=== PATIENT | female | born 1950 ===

== ENCOUNTER → 2020-07-25 | Outpatient (CLI) | payer MEDICARE, OTHER ==
[2020-07-25 11:02] LABS: HCT 43.4 % (34.0-46.0); HGB 13.4 gm/dL (11.4-16.0); MCH 32.2 pg (25.0-35.0); Macrocytosis Slight; Platelet Count 285 k/uL (150-450); RBC 4.18 m/uL (3.80-5.40); RDW 12.8 % (11.5-15.5)
[2020-07-25 11:06] LABS: ALT 21 U/L (4-34); AST 32 U/L (14-36); African American GFR (CKD) >90 (>60 ml/min/1.73 sqM); Albumin 4.4 g/dL (3.5-5.0); Alkaline Phosphatase 62 U/L (38-126); Anion Gap 6 mmol/L; Blood Urea Nitrogen 22 mg/dL (7-17); Carbon Dioxide 30 mmol/L (22-30); Chloride 102 mmol/L (98-107); Glucose 94 mg/dL (74-99); Non-African American GFR(CKD) 78 (>60 ml/min/1.73 sqM); Potassium 4.4 mmol/L (3.5-5.1); Sodium 138 mmol/L (137-145); Total Bilirubin 0.5 mg/dL (0.2-1.3)
[2020-07-25 12:44] LABS: INR 0.9 (<1.2); Partial Thromboplastin Time 23.6 sec (22.0-30.0); Prothrombin Time 9.7 sec (9.0-12.0)
[2020-07-25 13:28] LABS: Appearance,Urine Clear (Clear); Bilirubin,Urine Negative (Negative); Blood,Urine Negative (Negative); Color,Urine Yellow; Glucose,Urine (UA) Negative (Negative); Ketones,Urine Negative (Negative); Leukocyte Esterase,Urine Negative (Negative); Nitrite,Urine Negative (Negative); Protein,Urine Negative (Negative); Specific Gravity,Urine 1.019 (1.001-1.035); Urobilinogen,Urine <2.0 mg/dL (<2.0)
== END | disposition home or self-care (01) ==
LOC: LABPAT 09:05
PROVIDERS: ATTEND Orthopaedic Surgery
DX: Z01.818 Encounter for other preprocedural examination (principal); M16.11 Unilateral primary osteoarthritis, right hip; Z01.812 Encounter for preprocedural laboratory examination
CPT/HCPCS: 36415; 80053; 81003; 85027; 85610; 85730; 87070; 93005

== ENCOUNTER 2020-08-01 07:47 | Day surgery (SDC) | payer MEDICARE, OTHER ==
[2020-07-28 12:39] VITALS: BMI 23.8
[~2020-08-01 07:47] MED LIST: ACETAMINOPHEN TAB 500 MG TAB PO ONE; DEXAMETHASONE SOD PHOSPHATE 4 MG/ML 1 ML VIAL IV ONE; GABAPENTIN 300 MG CAP PO ONE; HYDROmorphone 0.5 MG/0.5 ML SYRINGE IVP PRN; LIDOCAINE 1% (10MG/ML) FOR IV START INTRADERMA PRN; MELOXICAM 7.5 MG TAB PO ONE; MIDAZOLAM 2 MG/2 ML VIAL IV PRN; ONDANSETRON 4 MG/2 ML VIAL IVP ONE; TRANEXAMIC ACID 1,000 MG in SODIUM CHLORIDE 0.9% 100 ML IVPB ONE
[2020-08-01] MEDS: LACTATED RINGERS 1,000 ML IV SCH (08:42)
[2020-08-01] MEDS ORDERED: PROPOFOL 10 MG/ML 20 ML VIAL IV ONE (09:00)
[2020-08-01] MEDS ORDERED: SODIUM CHLORIDE 0.9% IRRIG 1,000 ML BTL IRRIGATION ONE (09:00)
[2020-08-01] MEDS ORDERED: PHENYLEPHRINE-0.9% NACL SYG 1 MG/10 ML SYRINGE ONE (09:00)
[2020-08-01] MEDS ORDERED: fentaNYL (PF) 50 MCG/ML 2 ML AMP ONE (09:00)
[2020-08-01] MEDS ORDERED: SODIUM CHLORIDE 0.9% 100 ML BAG ONE (09:00)
[2020-08-01] MEDS ORDERED: TRANEXAMIC ACID 1,000 MG/10 ML VIAL ONE (09:00)
[2020-08-01] MEDS ORDERED: HEPARIN SODIUM,PORCINE 10,000 UNIT/ML 1 ML VIAL ONE (09:00)
[2020-08-01] MEDS ORDERED: MIDAZOLAM 2 MG/2 ML VIAL ONE (09:00)
[2020-08-01] MEDS ORDERED: ePHEDrine SULFATE/0.9% NACL/PF 50 MG/5 ML SYRINGE IV ONE (09:00)
[2020-08-01] MEDS ORDERED: ceFAZolin 3,000 MG in SODIUM CHLORIDE 0.9% IRRIGATIO 3,000 ML IRRIGATION ONE (09:05)
[2020-08-01] MEDS ORDERED: MAGNESIUM HYDROXIDE 2,400 MG/10 ML CUP PO PRN (09:07)
[2020-08-01] MEDS ORDERED: HYDROcodone/APAP 5-325MG 1 EACH TAB PO PRN (09:07)
[2020-08-01] MEDS ORDERED: NALOXONE 0.4 MG/ML 1 ML VIAL IV PRN (09:07)
[2020-08-01] MEDS ORDERED: ONDANSETRON 4 MG/2 ML VIAL IVP PRN (09:07)
[2020-08-01] MEDS ORDERED: HYDROmorphone 0.5 MG/0.5 ML SYRINGE IVP PRN ×3 (09:07)
[2020-08-01] MEDS ORDERED: diazePAM 5 MG TAB PO PRN (09:07)
[2020-08-01] MEDS ORDERED: hydrOXYzine pamoate 25 MG CAP PO PRN (09:07)
[2020-08-01] MEDS: ROPIVACAINE 246.25 MG, EPINEPHrine 0.5 MG, KETOROLAC 30 MG, cloNIDine HCL/PF 80 MCG, WA... MISCELLANE ONE ×10 (09:32→10:01)
--- NOTE | 2020-08-01 10:06 | P.OP ---
Date of Procedure: 08/01/20 Preoperative Diagnosis: Severe osteoarthritis right hip Postoperative Diagnosis: Severe osteoarthritis right hip Procedure(s) Performed: Right total hip arthroplasty with a direct anterior approach Implants: Kan and nephew Polarstem size 3 standard Kan & Nephew R3, 3 hole acetabular shell, 48 mm Kan & Nephew reflection 6.5 mm cancellus screw, 20 mm 2 Kan & Nephew R3, XLPE 20 acetabular liner Kan & Nephew Oxinium femoral head 32 m, +0 All components were press-fit. The articulation is Oxinium on polyethylene. Anesthesia: spinal Surgeon: Avery Kumar Powder Compounder #1: Debra Lainez Estimated Blood Loss (ml): 100 (55 mL returned with Cell Saver) Pathology: other (Femoral head) Condition: stable Disposition: PACU Indications for Procedure: After failure of conservative treatment we discussed the surgical and nonsurgical treatment options at length. Patient wishes to proceed with a total hip arthroplasty with a direct anterior approach. Complications specific to this procedure were discussed at length, including but not limited to infection, leg length discrepancy, dislocation, and nerve injury. Covid-19 was also discussed at length with the patient, and they are aware of the current policies and procedures. The patient was given the option of delaying surgery, but they elect to proceed knowing these risks. Patient is aware of all these complications and informed consent was obtained Operative Findings: The operative findings are consistent with severe osteoarthritis of the right hip Description of Procedure: Patient was seen and evaluated in the preoperative area, consent was reviewed, and the surgical site was marked with a skin marker. Patient was then brought to the operating room and given prophylactic antibiotics intravenously. 1 g of Tranexamic acid was also given. A spinal anesthetic was administered by the anesthesia department. The patient was then placed on the [place] table with the bony prominences well-padded. The hip area was then prepped and draped in usual sterile fashion. A universal timeout was then performed, which confirmed the patient's name, surgical site, ALLERGIES, and procedure being performed. Next the incision site was located at 1 cm distal and 1 cm lateral to the anterior superior iliac spine. The skin and subcutaneous tissues were sharply incised. Incision was carefully dissected down to the fascia overlying the tensor fascia baldomero muscle. This fascia was then incised in line with the incision. Next, using blunt finger dissection, the tensor fascia baldomero muscle was dissected off its investing fascia. The muscle was then carefully retracted laterally with a cobra retractor over the lateral neck of the femur. Next, the circumflex vessels were identified and cauterized using the AquaMantis device. The anterior hip capsule was then exposed. The capsule was then opened and an inverted T fashion. Cobra retractors were then placed intracapsularly. The proximal femur was then visualized. The femoral neck was then osteotomized appropriate level above the lesser trochanter. Small amount of traction was placed with the [place] table. A small wedge of bone was then removed from the remaining femoral head. Next, using a corkscrew femoral head was easily removed from the acetabulum. On gross visual inspection, the femoral head had complete loss of articular cartilage in multiple periarticular osteophytes. Attention was then turned to the acetabulum. the acetabulum was exposed and any remaining labrum was excised. Sequential reaming of the acetabulum was performed using fluoroscopic guidance. When the appropriate size was reached, a trial was then placed. The position and fit of the trial was checked with fluoroscopy. The trial was then removed. Then, using fluoroscopic guidance, the final implant was impacted at 20 of anteversion and 40 of abduction, and fully seated in the acetabulum. 2 screws were then placed in the acetabulum. Again fluoroscopy was used to check position of the screws. Next, the liner was then impacted, with a 20 elevated liner located in the anterior superior quadrant. Component locking was confirmed. Attention was then directed to the femur. With the aid of the [place] table, the femur was externally rotated to approximately 130, extended, and abducted under the opposite leg. A side hook was then placed under the proximal femur, and the side hook elevator was used to elevate the proximal femur. Retractors were then placed. A capsular release was performed, as well as a release of the conjoined tendon, which afforded excellent visualization of the proximal femur. Next, a box osteotome was used to lateralize the proximal femur. A stone hand was then used to locate the femoral canal. Sequential broaching was then performed with appropriate size which afforded excellent fixation in the proximal femur. A trial was then placed with appropriate head and neck, and the hip was gently reduced with the aid of the [place] table. Fluoroscopy was then used to check position of the components, as well as to ensure equal leg lengths. The hip was then gently dislocated and the trials were then removed. Final implants were then impacted and the hip was again reduced. Final fluoroscopic x-rays confirmed that the components were in anatomic position, as well as equal leg lengths. The hip was also taken through range of motion, and found to be stable. The hip was then copiously irrigated with antibiotic solution with pulsatile lavage. The hip was then irrigated with Irrisept solution. The soft tissues were then injected with a ropivacaine solution, which consisted of 246.25 mg of ropivacaine, 0.5 mg of epinephrine, 30 mg of Toradol, 80 g of clonidine, and 48.45 mL of sterile water, for a total of 100 mL of fluid injected. A second dose of 1 g of Tranexamic acid was also given. the fascia was then closed with 2-0 strata fix suture. The subcutaneous tissue was closed with 3-0 Vicryl. The subcuticular tissue was closed with 3-0 strata fix suture. The skin was then closed with Dermabond glue and a sterile silver dressing. The patient was then transferred to the recovery room in stable condition. The legal support assistant RICO Benitez was required due to the complexity of surgery, and the need for skilled assistant business manager for positioning, draping, exposure, retraction, and closure of the wound.
[2020-08-01] MEDS ORDERED: LACTATED RINGERS 1,000 ML IV ONE (10:19)
--- NOTE | 2020-08-01 10:20 | FL ---
Fluoroscopy History: Rt Hip-Ant 32sec fluoro time Dr.Scott Kumar
[2020-08-01] MEDS ORDERED: diphenhydrAMINE 50 MG/ML 1 ML VIAL IVP ONE (10:45)
[2020-08-01] MEDS ORDERED: ONDANSETRON 4 MG/2 ML VIAL IVP ONE (10:51)
[2020-08-01] MEDS: SODIUM CHLORIDE 0.9% 1,000 ML IV SCH ×2 (12:51→20:27)
--- NOTE | 2020-08-01 13:00 | XR ---
EXAMINATION TYPE: XR Hip Limited RT DATE OF EXAM: 08/01/2020 CLINICAL HISTORY: Postoperative evaluation TECHNIQUE: Single portable view of the right hip was submitted. FINDINGS: Noted are changes of total hip arthroplasty with femoral and acetabular components appearin g well seated. Alignment is anatomic. Postsurgical soft tissue changes are evident. IMPRESSION: Satisfactory postoperative alignment
[2020-08-01 13:49] VITALS: RESP 18
--- NOTE | 2020-08-01 17:05 | XR ---
EXAMINATION TYPE: XR Hip Limited RT DATE OF EXAM: 08/01/2020 COMPARISON: NONE HISTORY: Hip surgery TECHNIQUE: 2 views FINDINGS: 2 fluoroscopic images were obtained and show a right hip prosthesis in anatomic position. IMPRESSION: No complicating process seen.
--- NOTE | 2020-08-01 18:32 | P.CONS ---
History of Present Illness - Reason for Consult Consult date: 08/01/20 hypothyroidism Requesting physician: Rey Kumar - Chief Complaint right hip pain - History of Present Illness Patient is a 69-year-old female past medical history of hypothyroidism, dyslipidemia, and osteoarthritis who presented on 08/01 for direct anterior right total hip arthroplasty, she tolerated the procedure well without any immediate postoperative consultations. Patient seen and examined at bedside. She reports she had some nausea earlier but after eating and has resolved. She is feeling rather fatigued and groggy after anesthesia. She denies any presyncope, chest pain, shortness of breath. She reports she decided to get her hip replaced now she has been having worsening pain requiring tramadol and cane use. Review of Systems Pertinent positives and negatives as discussed in HPI, a complete review of systems was performed and all other systems are negative. Past Medical History Past Medical History: Hyperlipidemia, Osteoarthritis (OA), Thyroid Disorder History of Any Multi-Drug Resistant Organisms: None Reported Past Surgical History: Adenoidectomy, Hysterectomy, Orthopedic Surgery, Tonsillectomy Additional Past Surgical History / Comment(s): HYSTERECTOMY WITH cystocele and retocele REPAIR. COLONOSCOPY. RT CTR Past Anesthesia/Blood Transfusion Reactions: Postoperative Nausea & Vomiting (PONV) Past Psychological History: No Psychological Hx Reported Smoking Status: Never smoker Past Alcohol Use History: Occasional Past Drug Use History: None Reported Additional History: Cane for the last 2.5 months. Using Tramdol for pain. - Past Family History Sister(s) Family Medical History: Cancer Additional Family Medical History / Comment(s): 2 SISTER WITH BREAST CANCER Medications and Allergies Home Medications Medication Instructions Recorded Confirmed Type Acetaminophen [Tylenol Arthritis] 1,300 mg PO BID PRN 07/28/20 08/01/20 History Calcium Carbonate/Vitamin D3 1 each PO DAILY 07/28/20 08/01/20 History [Calcium 600-Vit D3 400 Tablet] Lovastatin [Mevacor] 10 mg PO DAILY 07/28/20 08/01/20 History Multivit with Calcium,Iron,Min 1 each PO DAILY 07/28/20 08/01/20 History [Women's Multivitamin] RX: Levothyroxine Sodium 100 mcg PO DAILY 07/28/20 08/01/20 History RX: traMADol HCL 12.5 mg PO Q4-6H PRN 07/28/20 08/01/20 History RX: traMADol HCL 25 mg PO HS 07/28/20 08/01/20 History Allergies Allergy/AdvReac Type Severity Reaction Status Date / Time carisoprodol [From Soma] Allergy EXTREME Verified 08/01/20 08:17 SEDATION niacin AdvReac FLUSHING Verified 08/01/20 08:17 Physical Exam Osteopathic Statement: *. No significant issues noted on an osteopathic structural exam other than those noted in the History and Physical/Consult. Vitals: Vital Signs Temp Pulse Resp BP Pulse Ox 08/01/20 15:00 89 105/66 95 08/01/20 14:00 79 109/67 97 08/01/20 13:30 116/70 08/01/20 13:20 97.4 F L 85 18 98/58 100 08/01/20 11:45 92 16 130/62 98 08/01/20 11:30 89 16 131/60 98 08/01/20 11:15 91 16 129/61 98 08/01/20 11:00 90 16 131/60 98 08/01/20 10:45 93 16 137/61 98 08/01/20 10:28 97.1 F L 101 H 16 115/56 98 08/01/20 08:14 97.7 F 87 18 153/70 100 Intake and Output 08/01/20 08/01/20 08/01/20 06:59 14:59 22:59 Intake Total 1231 Output Total 100 Balance 1131 Intake: IV 1101 Intake, IV Titration 130 Amount Sodium Chloride 0.9% 1, 130 000 ml @ 65 mls/hr IV . [id number] [facility] Rx#:[id number] Output: Estimated Blood Loss 100 Other: Weight 53.524 kg General: non toxic, no distress, appears at stated age Derm: warm, dry Head: atraumatic, normocephalic, symmetric Eyes: EOMI, no lid lag, anicteric sclera, pupils equal round reactive to light Neck: No thyromegaly, no cervical lymphadenopathy, trachea midline, supple Mouth: no lip lesion, mucus membranes moist Cardiovascular: S1S2 reg, no murmur, positive posterior tibial pulse bilateral, no edema, capillary refill less than 2 seconds Lungs: clear to ascultation bilateral, no ronchi, no rales, no wheeze, no accessory muscle use Abdominal: soft, nontender to palpation, no guarding, no appreciable organomegaly, normal bowel sounds Ext: no gross muscle atrophy, muscle strength muscle strength 5 out of 5 in upper extremities, no contractures Neuro: CN II-XI grossly intact, light touch intact all 4 extremities, finger to nose within normal limits, Psych: Alert, oriented, appropriate affect Assessment and Plan Assessment: Patient is a 69 yo CF s/p Right total hip arthroplasty. Management per ortho HLD - Statin Hypothyroidism - levothyroxine Post op nausea - zofran Thank you for allowing us to participate in the care of this pleasant patient. Do not hesitate to contact us with questions. Someone can be reached from the [facility] hospitalist group all hours of the day at [phone] or via [employer].
[2020-08-01] MEDS: ASPIRIN 325 MG TAB PO SCH (20:26)
[2020-08-01] MEDS: HYDROcodone/APAP 5-325MG 1 EACH TAB PO PRN (20:27)
[2020-08-01] MEDS ORDERED: SENNOSIDES-DOCUSATE SODIUM 1 EACH TAB PO SCH (21:00)
[2020-08-02] MEDS ORDERED: SODIUM CHLORIDE 0.9% 500 ML 500 ML IV ONE (01:26)
[2020-08-02] MEDS: HYDROcodone/APAP 5-325MG 1 EACH TAB PO PRN ×2 (04:40→09:48)
[2020-08-02] MEDS: LACTATED RINGERS 1,000 ML IV SCH (05:39)
[2020-08-02] MEDS ORDERED: LEVOTHYROXINE 100 MCG TAB PO SCH (06:30)
[2020-08-02 07:10] VITALS: PULSE 70; TEMP 97.9
[2020-08-02] MEDS: ASPIRIN 325 MG TAB PO SCH (07:16)
[2020-08-02 07:38] LABS: Basophils % (A) 0 %; Eosinophils % (A) 1 %; HCT 27.6 % (34.0-46.0); Lymphocytes # (A) 1.3 k/uL (1.0-4.8); Lymphocytes % (A) 19 %; MCH 32.3 pg (25.0-35.0); MCHC 32.4 g/dL (31.0-37.0); MCV 99.7 fL (80.0-100.0); Mean Platelet Volume 8.4; Monocytes # (A) 0.5 k/uL (0-1.0); Monocytes % (A) 8 %; Neutrophils # (A) 4.7 k/uL (1.3-7.7); Platelet Count 181 k/uL (150-450); RBC 2.77 m/uL (3.80-5.40); RDW 12.7 % (11.5-15.5); WBC 6.7 k/uL (3.8-10.6)
--- NOTE | 2020-08-02 08:25 | P.DS ---
Providers Expected date of discharge: 08/02/20 Attending physician: Avery Kumar Consults: 08/01/20 09:07 Consult Physician Routine Consulting Provider: Yolie Garcia Consult Reason/Comments: medical management Do you want consulting provider notified?: Yes Primary care physician: Stated None - Discharge Diagnosis(es) (1) Osteoarthritis of right hip Current Visit: Yes Status: Acute (2) S/P total hip arthroplasty Current Visit: Yes Status: Acute Hospital Course: This is a 69-year-old female with known history of degenerative arthritis of the right hip. The patient presented for evaluation as an outpatient. After discussion and consideration patient elects to proceed with total hip arthroplasty. The patient is seen preoperatively by Dr. Kumar and medically cleared for surgery by their primary care physician. Patient is admitted to [facility] on 08/01/2020 for total hip arthroplasty. The procedure is performed without complication or sequelae. The patient is doing well postoperatively. Labs and vital signs are stable on day of discharge. On day of discharge patient's hip incision is healing well. There is minimal erythema. There is no drainage noted at this time. There is minimal soft t issue swelling to the hip and thigh. Patient has full foot and ankle motion without difficulty or pain. Calf is soft and nontender to palpation. Neurovascular status to the right lower extremity is intact. Patient is discharged home in good condition. Please see med rec for accurate list of home medications. Plan - Discharge Summary Discharge Rx Participant: No New Discharge Prescriptions: New Aspirin 325 mg PO BID #60 tab HYDROcodone/APAP 5-325MG [[place] 5-325] 1 - 2 tab PO Q6HR PRN #48 tab PRN Reason: Pain Sennosides [Senokot] 2 tab PO DAILY PRN #60 tablet PRN Reason: Constipation No Action Lovastatin [Mevacor] 10 mg PO DAILY traMADol HCL 12.5 mg PO Q4-6H PRN PRN Reason: Pain traMADol HCL 25 mg PO HS Multivit with Calcium,Iron,Min [Women's Multivitamin] 1 each PO DAILY Levothyroxine Sodium 100 mcg PO DAILY Calcium Carbonate/Vitamin D3 [Calcium 600-Vit D3 400 Tablet] 1 each PO DAILY Acetaminophen [Tylenol Arthritis] 1,300 mg PO BID PRN PRN Reason: BREAK THROUGH PAIN Discharge Medication List Acetaminophen [Tylenol Arthritis] 1,300 mg PO BID PRN 07/28/20 [History] Calcium Carbonate/Vitamin D3 [Calcium 600-Vit D3 400 Tablet] 1 each PO DAILY 07/28/20 [History] Levothyroxine Sodium 100 mcg PO DAILY 07/28/20 [History] Lovastatin [Mevacor] 10 mg PO DAILY 07/28/20 [History] Multivit with Calcium,Iron,Min [Women's Multivitamin] 1 each PO DAILY 07/28/20 [History] traMADol HCL 12.5 mg PO Q4-6H PRN 07/28/20 [History] traMADol HCL 25 mg PO HS 07/28/20 [History] Aspirin 325 mg PO BID #60 tab 08/02/20 [Rx] HYDROcodone/APAP 5-325MG [[place] 5-325] 1 - 2 tab PO Q6HR PRN #48 tab 08/02/20 [Rx] Sennosides [Senokot] 2 tab PO DAILY PRN #60 tablet 08/02/20 [Rx] Follow up Appointment(s)/Referral(s): [facility] [NON-STAFF] - As Needed Avery Kumar DO [Doctor of Osteopathic Medicine] - 2 Weeks Activity/Diet/Wound Care/Special Instructions: Weightbearing as tolerated with walker. Leave dressing intact. Dressing may be removed by home care nurse or by patient in 10 days. May shower with dressing on. Please take aspirin 325mg twice daily for 30 days to prevent blood clots. Recommend use of compression stockings daily until follow up to help prevent swelling and blood clots. May remove at night before sleeping. Please follow-up with [facility] in 2 weeks and call with any questions or concerns, . Discharge Disposition: HOME WITH HOME HEALTH SERVICES
[2020-08-02 08:39] VITALS: BP 106/63
[2020-08-02] MEDS ORDERED: MELOXICAM 7.5 MG TAB PO SCH (09:00)
[2020-08-02] MEDS ORDERED: ATORVASTATIN 10 MG TAB PO SCH (09:00)
[2020-08-02] MEDS ORDERED: MULTIVITAMINS, THERA 1 EACH TAB PO SCH (09:00)
--- NOTE | 2020-08-02 15:04 | P.PN ---
Subjective Progress Note Date: 08/02/20 (delayed charting seen at 0830) Principal diagnosis: hip pain Patient is a 69-year-old female past medical history of hypothyroidism, dyslipidemia, and osteoarthritis who presented on 08/01 for direct anterior right total hip arthroplasty, she tolerated the procedure well without any immediate postoperative consultations. Patient seen and examined at bedside. No chest pain, Shortness of breath, no nausea, pain well controlled, ambulated well, no dizziness. Patient is a 69 yo CF s/p Right total hip arthroplasty. Management per ortho General: non toxic, no distress, appears at stated age Derm: warm, dry Head: atraumatic, normocephalic, symmetric Eyes: EOMI, no lid lag, anicteric sclera Mouth: no lip lesion, mucus membranes moist Cardiovascular: S1S2 reg, no murmur, positive posterior tibial pulse bilateral, Lungs: CTA bilateral, no rhonchi, no rales , no accessory muscle use Abdominal: soft, nontender to palpation, no guarding, no appreciable organome song Ext: no gross muscle atrophy, no edema, no contractures Neuro: CN II-XI grossly intact, no focal neuro deficits Psych: Alert, oriented, appropriate affect Acute blood loss anemia - repeat CBC in 3 days - iron X 30 days RX sent HLD - Statin Hypothyroidism - levothyroxine Post op nausea - zofran Patient medically optimized for discharge. Thank you for allowing us to participate in the care of this pleasant patient. Do not hesitate to contact us with questions. Someone can be reached from the [facility] hospitalist group all hours of the day at [phone] or via [employer]. Objective - Vital Signs Vital signs: Vital Signs Temp 97.9 F 08/02/20 07:09 Pulse 70 08/02/20 07:09 Resp 18 08/02/20 07:19 BP 106/63 08/02/20 08:25 Pulse Ox 95 08/02/20 07:09 Intake & Output 08/01/20 08/02/20 08/02/20 18:59 06:59 18:59 Intake Total 1231 615 180 Output Total 100 Balance 1131 615 180 Weight 53.524 kg Intake: IV 1101 Intake, IV Titration 130 325 Amount Sodium Chloride 0.9% 1, 130 325 000 ml @ 65 mls/hr IV . [id number] [facility] Rx#:[id number] Oral 290 180 Output: Estimated Blood Loss 100 Other: Voiding Method Toilet Toilet # Voids 1 1 - Labs CBC & Chem 7: 08/02/20 06:26 Labs: Abnormal Lab Results - Last 24 Hours (Table) 08/02/20 Range/Units 06:26 RBC 2.77 L (3.80-5.40) m/uL Hgb 9.0 L D (11.4-16.0) gm/dL Hct 27.6 L (34.0-46.0) %
== END 2020-08-02 11:40 | disposition home health service (06) ==
LOC: OR 07:47 → 5NMEDONC 11:35 → OR 08-02 11:40
PROVIDERS: ATTEND Orthopaedic Surgery
DX: M16.11 Unilateral primary osteoarthritis, right hip (principal); D62 Acute posthemorrhagic anemia; I10 Essential (primary) hypertension; E03.9 Hypothyroidism, unspecified; E78.5 Hyperlipidemia, unspecified; R26.81 Unsteadiness on feet; Z97.3 Presence of spectacles and contact lenses; Z90.710 Acquired absence of both cervix and uterus; Z98.890 Other specified postprocedural states; Z80.3 Family history of malignant neoplasm of breast; Z79.890 Hormone replacement therapy; Z79.891 Long term (current) use of opiate analgesic; Z79.899 Other long term (current) drug therapy; Z88.8 Allergy status to other drugs, medicaments and biological substances
CPT/HCPCS: 27130; 97116; 97110; 97161; 97535; 97166; 86891; 86900; 86901; 85025; 86850; 88300; 73501; P9022; C1776; J0171; J1200; J1100; J0690 ×3; J2405; J1885; J2795; J0735